=== PATIENT | male | born 1995 | race Caucasian/White ===

== ENCOUNTER 2020-09-24 07:54 | Emergency (ER) | payer SELFPAY ==
[~2020-09-24] VITALS: Ht 188 cm; Wt 79.4 kg
[2020-09-24] MEDS ORDERED: IV NORMAL SALINE 1000 ML BAG IV ONE ×4 (08:15→19:15)
--- NOTE | 2020-09-24 08:19 | NUR ---
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
[2020-09-24 08:47] LABS: BASOPHILS # (AUTO) 0.1 K/uL (0.0-8.0); BASOPHILS % (AUTO) 0.7 % (0.0-2.0); EOSINOPHILS # (AUTO) 0.2 K/uL (0.0-0.7); EOSINOPHILS % (AUTO) 2.8 % (0.0-7.0); HEMATOCRIT 38.3 % (36.7-47.1); HEMOGLOBIN 13.2 g/dL (12.5-16.3); LYMPHOCYTES # (AUTO) 3.1 K/uL (20.0-40.0); LYMPHOCYTES % (AUTO) 42.5 % (20.5-51.5); MEAN CORPUSCULAR HEMOGLOBIN 27.9 uug (23.8-33.4); MEAN CORPUSCULAR HGB CONC 35 g/dL (32.5-36.3); MEAN CORPUSCULAR VOLUME 80.9 fL (73.0-96.2); MONOCYTES # (AUTO) 0.9 K/uL (2.0-10.0); PLATELET COUNT (AUTO) 342 K/uL (152-348); RED BLOOD CELL COUNT(AUTO) 4.73 MIL/uL (4.06-5.63); WHITE BLOOD COUNT (AUTO) 7.2 K/uL (3.6-10.2)
[2020-09-24 08:52] LABS: CARBON DIOXIDE 32 mmol/L (21-32); CHLORIDE 101 mmol/L (98-107); CREATININE 0.9 mg/dL (0.6-1.3); GLUCOSE 103 mg/dL (74-106); POTASSIUM 3.8 mmol/L (3.5-5.1); UREA NITROGEN, BLOOD 15 mg/dL (7-18)
[2020-09-24 08:57] LABS: ETHANOL < 3 MG/DL (0-0)
[2020-09-24 09:01] LABS: ALANINE AMINOTRANSFERASE 197 U/L (16-63); ALKALINE PHOSPHATASE 101 U/L (50-136); ASPARTATE AMINOTRANSFERASE 110 U/L (15-37); BILIRUBIN,DIRECT 0.2 mg/dL (0.0-0.2); BILIRUBIN,TOTAL 0.6 mg/dL (0.2-1.0); CREATINE KINASE, TOTAL 90 U/L (39-308)
[2020-09-24 09:04] LABS: ACETAMINOPHEN < 2.0 ug/mL (10-30)
[2020-09-24] MEDS ORDERED: ACETAMINOPHEN ES 500 MG TABLET PO ONE (10:45)
[2020-09-24] MEDS ORDERED: NEOMY/BACITRA/POLYMYXIN B OINT UD PACKET TP ONE (10:45)
[2020-09-24 10:51] LABS: THYROID STIMULATING HORMONE 1.677 mIU/mL (0.358-3.740)
--- NOTE | 2020-09-24 12:04 | NUR ---
No signs of acute distress noted, patient noted resting wit stable vitals
--- NOTE | 2020-09-24 15:39 | NUR ---
Patient noted resting, vitals are stable
[2020-09-24] MEDS ORDERED: PROPOFOL 100 ML ONE (18:55)
[2020-09-24 19:25] VITALS: BP 115/69
--- NOTE | 2020-09-24 19:30 | NUR ---
Patient discharged to home in stable condition. Written and verbal after care instructions given. Patient verbalizes understanding of instructions. Stressed follow up or return to ER for worsening s/s. Steady gait. Advised to not drive. Belongings with patient. Education provided.
== END 2020-09-24 19:35 | disposition home or self-care (01) ==
LOC: ER 07:54
DX: R41.0 Disorientation, unspecified (principal); T42.4X5A Adverse effect of benzodiazepines, initial encounter; Y92.414 Local residential or business street as the place of occurrence of the external cause; R79.89 Other specified abnormal findings of blood chemistry; E86.0 Dehydration; Z20.822 Contact with and (suspected) exposure to COVID-19
CPT/HCPCS: 36415; 70030-TC; 70450; 71045; 83605; 84443; 85025; 85730; 87040; 93005; A4663; G0480; J3490; J7030